=== PATIENT | male | born 1970 ===

== ENCOUNTER 2023-09-28 16:45 | Emergency (ER) | payer SELFPAY ==
[2023-09-28] MEDS: Tetracaine HCl/PF 0.5% 4 ML Bottle EYEBOTH ONE (17:16)
[2023-09-28] MEDS: Diphtheria,Pertussis(Acell),Tetanus Vaccine 0.5 ML Syringe IM ONE (17:17)
== END 2023-09-28 18:21 | disposition home or self-care (01) ==
LOC: MW.ED 16:45
DX: S05.01XA Injury of conjunctiva and corneal abrasion without foreign body, right eye, initial encounter (principal); Z23 Encounter for immunization; W20.8XXA Other cause of strike by thrown, projected or falling object, initial encounter
CPT/HCPCS: 90471; 90715; 99283; 99283-25; J3490